=== PATIENT | female | born 1995 | race Caucasian/White ===

== ENCOUNTER 2017-09-02 13:30 | Inpatient (IN) | payer OTHER ==
--- NOTE | 2017-09-02 13:45 | History and Physical Report ---
History of Present Illness Date of examination: 09/02/17 Date of admission: 09/02/17 13:30 Chief complaint: Contractions History of present illness: 21 yo Fe G1 EDD2/06/2018 40 weeks 1day gestation presents in spontaneous labor. Pt initiated early care with [facility]. Her has been uncomplicated. PMH unremarkable. Triple screen Negative. AB positive, Rubella immune, GBS Negative. 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 denies: smoking, alcohol abuse, prescription drug abuse, IV drug use - Obstetrical History Expected Date of Delivery: 09/01/17 Actual Gestation: 40 Week(s) 1 Day(s) : 1 Para: 0 Hx # Term Pregnancies: 0 Number of Pregnancies: 0 Spontaneous Abortions: 0 Induced : 0 Number of Living Children: 0 Medications and Allergies Allergies Allergy/AdvReac Type Severity Reaction Status Date / Time No Known Allergies Allergy Unverified 09/02/17 13:47 Home Medications Medication Instructions Recorded Confirmed Last Taken Type Formula Tablet 09/02/17 Unknown History Review of Systems All systems: negative Gastrointestinal: abdominal pain, no nausea, no vomiting, no diarrhea Genitourinary: pelvic pain, contractions, no leakage of fluid, no genital sores - Physical Exam Breasts: Cardiovascular: Regular rate, Normal S1, Normal S2, No murmurs Lungs: Positive: Clear to auscultation, Normal air movement Abdomen: Positive: normal appearance, soft, normal bowel sounds, other (Gravid) Genitourinary (Female): Positive: normal external genitalia, normal perenium Vulva: both: normal Vagina: Positive: normal moisture Uterus: Positive: enlarged (gravid; S=D) Anus/Rectum: Positive: normal perianal skin Extremities: Positive: normal Deep Tendon Reflex Grade: Normal +2 - Obstetrical FHR: category 1 FHR comments: 140, moderate varibalility Uterine Contraction Monitor Mode: External Cervical Dilatation: 8 (Per admitting RN) Cervical Effacement Percentage: 80 station: 1 Uterine Contraction Frequency (min): 3 Uterine Contraction Duration: 100 Uterine Contraction Pattern: Regular Uterine Tone Measurement Phase: Resting Uterine Contraction Intensity: Moderate Results All other labs normal. Assessment and Plan A: Term gestation; ANGEL 09/01/17, 40w1d Active labor GBS Negative P: Admit to L&D Routine labor orders May have IV/Epidural pain management Expectant management Anticipate
[2017-09-02] MEDS ORDERED: PHENERGAN PR PRN ×2 (13:55→15:59)
[2017-09-02] MEDS ORDERED: XYLOCAINE 2% INFILTRATI ONE (13:55)
[2017-09-02] MEDS ORDERED: MINERAL OIL PO PRN (13:55)
[2017-09-02] MEDS ORDERED: ePHEDrine SULFATE IV PRN (13:55)
[2017-09-02] MEDS ORDERED: BRETHINE IVP PRN (13:55)
[2017-09-02] MEDS ORDERED: SUBLIMAZE IV PRN (13:55)
[2017-09-02] MEDS ORDERED: BRETHINE SUB-Q PRN (13:55)
[2017-09-02] MEDS ORDERED: ZOFRAN IV PRN ×2 (13:55→15:59)
[2017-09-02] MEDS ORDERED: NARCAN 0.4 MG/1 ML IV PRN (13:55)
[2017-09-02] MEDS ORDERED: PITOCin/NS 30 UNIT/500ML 30 UNITS/500 ML BAG IV SCH (14:00)
[2017-09-02] MEDS ORDERED: LACTATED RINGERS 1,000 ML IV SCH (14:00)
[2017-09-02 14:28] LABS: Hematocrit 40.8 % (30.3-42.9); Hemoglobin 13.9 gm/dl (10.1-14.3); Mean Corpuscular HGB Conc 34 % (30-34); Mean Corpuscular Hemoglobin 31 pg (28-32); Mean Corpuscular Volume 90 fl (79-97); Platelet Count 197 K/mm3 (140-440); Red Blood Count 4.55 M/mm3 (3.65-5.03); Red Cell Distribution Width 14.2 % (13.2-15.2)
[2017-09-02] MEDS: PITOCin/NS 20 UNIT/1000ML DRIP 20 UNITS/1,000 ML BAG IV SCH ×2 (15:45→16:49)
--- NOTE | 2017-09-02 15:56 | Procedure Note ---
OB Delivery Note - Delivery Date of Delivery: 09/02/17 (15:40) Surgeon: CLAIRE JOHNSON (ALMA) Estimated blood loss: other (150) - Vaginal Delivery presentation: vertex, compound (right hand) Delivery position: OA Intrapartum events: none Delivery induction: none Delivery augmentation: rupture of membranes Delivery monitor: external FHT, external uterine Route of delivery: Delivery placenta: spontaneous (reyna; velomentous insertion, 3VC) Episiotomy: none Delivery laceration: none Anesthesia: none Delivery comments: unmedicated , RAMIRO/compound presentation (right hand), viable female over intact perineum. less vigorous infant, Cord clamped, cut and infant to pre- warmed RW for assessment by R/NICU for meconium presentation. Spontansous reyna delivery of intact placenta, velamentous cord insertion noted, 3VC. Placenta discarded. FF@U-2, scant rubra lochia, no tears or lacerations. Infant and mother left in stable condition in L&D. - A at 1 minute: 8 at 5 minutes: 8 Infant Gender: Female (3703grams/ 8lbs 3oz)
[2017-09-02] MEDS ORDERED: DULCOLAX PR PRN (15:59)
[2017-09-02] MEDS ORDERED: BENADRYL PO PRN (15:59)
[2017-09-02] MEDS ORDERED: TYLENOL PO PRN (15:59)
[2017-09-02] MEDS ORDERED: TUCKS PAD TP PRN (15:59)
[2017-09-02] MEDS ORDERED: LANSINOH TP PRN (15:59)
[2017-09-02] MEDS ORDERED: PHENERGAN PO PRN (15:59)
[2017-09-02] MEDS ORDERED: NORCO 5/325 PO PRN (15:59)
[2017-09-02] MEDS ORDERED: MILK OF MAGNESIA PO PRN (15:59)
[2017-09-02] MEDS ORDERED: SODIUM CHLORIDE FLUSH SYRINGE 10 ML IV NR (16:00)
[2017-09-02] MEDS: MOTRIN PO SCH ×2 (18:13→23:43)
[2017-09-02] MEDS: COLACE PO SCH (23:42)
[2017-09-03 05:19] LABS: Hematocrit 38.4 % (30.3-42.9); Hemoglobin 13.2 gm/dl (10.1-14.3)
[2017-09-03] MEDS: MOTRIN PO SCH ×3 (06:00→18:13)
[2017-09-03] MEDS ORDERED: M-M-R II VACCINE SUB-Q ONE (06:00)
[2017-09-03] MEDS ORDERED: BOOSTRIX IM ONE (06:00)
--- NOTE | 2017-09-03 10:06 | Progress Note ---
Assessment and Plan A: PP Day #1 Stable P: Follow Routine Orders D/C home today per patient request RTO in 6 Weeks Subjective - Subjective Date of service: 09/03/17 Patient reports: appetite normal, voiding normally, pain well controlled, flatus , ambulating normally : doing well, bottle feeding (and ) Objective - Vital Signs Latest vital signs: Vital Signs Temp Pulse Resp BP BP Pulse Ox 09/03/17 08:33 98.3 F 83 18 101/66 99 09/03/17 00:00 98.0 F 77 18 113/60 09/02/17 20:10 98.2 F 80 18 91/55 09/02/17 17:57 99 F 75 20 104/55 09/02/17 16:58 72 112/59 09/02/17 16:43 73 101/58 09/02/17 16:28 75 103/55 09/02/17 16:13 87 102/56 09/02/17 16:10 62 82 L 09/02/17 16:03 91 09/02/17 15:58 75 104/52 09/02/17 15:55 91 09/02/17 15:14 106 H 0 L 09/02/17 14:44 66 94 09/02/17 14:42 87 95 09/02/17 14:37 64 97 09/02/17 14:33 84 94 09/02/17 14:32 75 96 09/02/17 14:28 75 94 09/02/17 14:27 86 96 09/02/17 14:22 79 98 09/02/17 14:20 81 94 09/02/17 14:17 82 95 09/02/17 14:15 80 112/56 09/02/17 14:11 97.6 F 80 16 112/56 96 Intake and Output 09/02/17 09/03/17 09/03/17 22:59 06:59 14:59 Intake Total 133.333 600 Balance 133.333 600 Intake: IV 133.333 PITOCin/NS 20 UNIT/1000ML 133.333 DRIP 20 units In 1,000 ml @ 125 mls/hr IV DIRECT YOSEF Rx#:[id number] Oral 600 Other: Total, Intake Amount 600 # Voids Void 500 600 Estimated Blood Loss 150 - Exam Breasts: Present: normal Cardiovascular: Present: Regular rate Lungs: Present: Clear to auscultation, Normal air movement Abdomen: Present: normal appearance, soft, normal bowel sounds Uterus: Present: normal, firm, fundal height below umbilicus Extremities: Present: normal
--- NOTE | 2017-09-03 10:07 | Discharge Summary ---
Providers - Providers Date of Admission: 09/02/17 13:30 Date of discharge: 09/03/17 Attending physician: DEBBY SABA MD Primary care physician: DEBBY SABA MD Hospitalization Reason for admission: active labor Delivery: Episiotomy: none Laceration: none Other procedures: none complications: none Discharge diagnosis: IUP at term delivered [place] baby: female Condition at discharge: Good Disposition: DC-01 TO HOME OR SELFCARE Plan - Provider Discharge Summary Activity: routine, no sex for 6 weeks, no heavy lifting 4 weeks, no strenuous exercise Diet: routine Instructions: routine Additional instructions: [] Smoking cessation referral if applicable(refer to patient education folder for contact #) [] Refer to [facility] Book[facility] Call your doctor immediately for: * Fever > 100.5 * Heavy vaginal bleeding ( >1 pad per hour) * Severe persistent headache * Shortness of breath * Reddened, hot, painful area to leg or breast * Drainage or odor from incision. * Keep incision clean and dry at all times and follow doctor's instructions regarding bathing/showering - Follow up plan Follow up: DEBBY SABA MD [Primary Care Provider] - 6 Weeks
[2017-09-03] MEDS ORDERED: Fluarix Quad 2017-2018(36 MOS+ IM ONE (12:00)
[2017-09-03] MEDS: COLACE PO SCH ×3 (15:57→21:38)
[2017-09-04] MEDS: MOTRIN PO SCH (06:32)
[2017-09-04 10:09] VITALS: BP 114/71
[2017-09-04] MEDS: COLACE PO SCH (10:39)
== END 2017-09-04 14:10 | disposition home or self-care (01) | DRG 775 ==
LOC: LD 13:30 → OB 17:21
PROVIDERS: ADMIT Obstetrics & Gynecology; ATTEND Obstetrics & Gynecology
PROC: 10E0XZZ Delivery of Products of Conception, External Approach (ICD-10-PCS; 2017-09-02)
PROC: 3E0234Z Introduction of Serum, Toxoid and Vaccine into Muscle, Percutaneous Approach (ICD-10-PCS; principal; 2017-09-03)
DX: O77.0 Labor and delivery complicated by meconium in amniotic fluid (principal); O32.6XX0 Maternal care for compound presentation, not applicable or unspecified; Z37.0 Single live birth; Z23 Encounter for immunization; Z3A.40 40 weeks gestation of pregnancy
CPT/HCPCS: 36415; 85014; 85018; 85027; 86592; 86850; 86900; 86901; 90471; 90715; 99211; G0463; J2590

== ENCOUNTER 2021-03-01 11:33 | Inpatient (IN) | payer MEDICAID ==
[2021-03-01] MEDS ORDERED: fentaNYL 100 MCG/2 ML INJ IV PRN (13:39)
[2021-03-01] MEDS ORDERED: miSOPROStol 200 MCG TAB PR PRN (13:39)
[2021-03-01] MEDS ORDERED: MINERAL OIL 30 ML ORAL LIQD PO PRN (13:39)
[2021-03-01] MEDS ORDERED: ACETAMINOPHEN 325 MG TAB PO PRN (13:39)
[2021-03-01] MEDS ORDERED: LOPERAMIDE 2 MG CAP PO PRN (13:39)
[2021-03-01] MEDS ORDERED: TERBUTALINE 1 MG/1 ML INJ SUB-Q PRN (13:39)
[2021-03-01] MEDS ORDERED: ePHEDrine SULFATE 50 MG/1 ML INJ IV PRN (13:39)
[2021-03-01] MEDS ORDERED: OXYTOCIN 10 UNIT/1 ML INJ IM PRN (13:39)
[2021-03-01] MEDS ORDERED: METHYLERGONOVINE MALEATE 0.2 MG/ML VIAL IM PRN (13:39)
[2021-03-01] MEDS ORDERED: BUTORPHANOL 2 MG/1 ML INJ IV PRN ×2 (13:39)
[2021-03-01] MEDS ORDERED: CARBOPROST TROMETHAMINE 250 MCG/1 ML INJ IM PRN (13:39)
[2021-03-01] MEDS ORDERED: LACTATED RINGERS 1,000 ML IV SCH (13:45)
[2021-03-01] MEDS ORDERED: OXYTOCIN DRIP 30 UNITS/500 ML BAG IV SCH ×2 (14:00)
[2021-03-01] MEDS ORDERED: LIDOCAINE (2%) 20 MG/1 ML VIAL 20 ML MDV INFILTRATI ONE (14:00)
--- NOTE | 2021-03-01 14:01 | History and Physical Report ---
History of Present Illness Date of examination: 03/01/21 Date of admission: 03/01/21 Chief complaint: c/o uc times several hours History of present illness: 25 y/o female presents to [facility] @ 39.1 wks with c/o uc times several hours. Pt denies LOF or VB and admits to active FM. She [facility] [place] @ 13 3/7 wks. Pt had an uncomplicated course and her GBS is neg. Unremarkable med/surgical/social/family hx. Pt was found to be in labor and was admitted to L&D for delivery. Past History Past Medical History: no pertinent history Past Surgical History: no surgical history Family/Genetic History: none Social history: no significant social history, , full code - Obstetrical History Expected Date of Delivery: 03/05/21 Actual Gestation: 39 Week(s) 3 Day(s) : 2 Para: 1 Hx # Term Pregnancies: 1 Number of Pregnancies: 0 Number of Living Children: 1 Medications and Allergies Allergies Allergy/AdvReac Type Severity Reaction Status Date / Time No Known Allergies Allergy Verified 03/01/21 12:46 Home Medications Medication Instructions Recorded Confirmed Last Taken Type Formula Tablet 1 tab PO DAILY 09/02/17 1 Day Ago History ~02/28/21 Active Meds: Active Medications Acetaminophen (Acetaminophen 325 Mg Tab) 650 mg PO Q4H PRN PRN Reason: Pain, Mild (1-3) Butorphanol Tartrate (Butorphanol 2 Mg/1 Ml Inj) 1 mg IV Q2H PRN PRN Reason: Pain, Moderate(4-6) LABOR PAIN Butorphanol Tartrate (Butorphanol 2 Mg/1 Ml Inj) 2 mg IV Q2H PRN PRN Reason: Pain , Severe (7-10) Carboprost Tromethamine (Carboprost Tromethamine 250 Mcg/1 Ml Inj) 250 mcg IM ONCE PRN PRN Reason: Uterine Bleeding Ephedrine Sulfate (Ephedrine Sulfate 50 Mg/1 Ml Inj) 10 mg IV Q2M PRN PRN Reason: Hypotension Fentanyl (Fentanyl 100 Mcg/2 Ml Inj) 100 mcg IV Q2H PRN PRN Reason: Pain,Severe (7-10) LABOR PAIN Oxytocin/Sodium Chloride (Pitocin/Ns 30 Unit/500ml) 30 units in 500 mls @ 2 mls/hr IV TITR YOSEF; Protocol Lactated Ringer's (Lactated Ringers) 1,000 mls @ 125 mls/hr IV DIRECT YOSEF Oxytocin/Sodium Chloride (Pitocin/Ns 30 Unit/500ml) 30 units in 500 mls @ 40 mls/hr IV TITR YOSEF; Protocol Lidocaine (Lidocaine (2%) 20 Mg/1 Ml Vial 20 Ml Mdv) 20 ml INFILTRATI ONCE ONE Stop: 03/01/21 13:40 Loperamide HCl (Loperamide 2 Mg Cap) 2 mg PO ONCE PRN PRN Reason: give with Hemabate Methylergonovine Maleate (Methylergonovine Maleate 0.2 Mg/Ml Vial) 0.2 mg IM ONCE PRN PRN Reason: Uterine Bleeding Mineral Oil (Mineral Oil 30 Ml Oral Liqd) 30 ml PO QHS PRN PRN Reason: Constipation Misoprostol (Misoprostol 200 Mcg Tab) 800 mcg MN ONCE PRN PRN Reason: Uterine Bleeding Oxytocin (Oxytocin 10 Unit/1 Ml Inj) 10 unit IM ONCE PRN PRN Reason: Uterine Bleeding Terbutaline Sulfate (Terbutaline 1 Mg/1 Ml Inj) 0.25 mg SUB-Q ONCE PRN PRN Reason: Hyperstimulation/Hypertonicity Review of Systems All systems: negative Eyes: deferred Ears, nose, mouth and throat: deferred Breasts: normal Genitourinary: normal appearance Rectal Exam: deferred - Vital Signs Vital signs: Vital Signs Temp Pulse Resp BP Pulse Ox 98.8 F 67 14 120/66 100 03/01/21 12:47 03/01/21 12:47 03/01/21 12:47 03/01/21 12:47 03/01/21 12:47 Temp Pulse Resp BP Pulse Ox 98.8 F 81 14 103/55 97 03/01/21 12:47 03/01/21 13:49 03/01/21 12:47 03/01/21 13:26 03/01/21 13:49 - Physical Exam Breasts: Positive: normal Abdomen: Positive: normal appearance, soft, normal bowel sounds Genitourinary (Female): Positive: normal external genitalia, normal perenium Vulva: both: normal Vagina: Positive: normal moisture Uterus: Positive: enlarged, normal contour, other (gravid) Adnexa: both: normal Anus/Rectum: Positive: normal perianal skin Extremities: Positive: normal - Obstetrical FHR: auscultation normal, category 1 Uterine Contraction Monitor Mode: External Cervical Dilatation: 5 Cervical Effacement Percentage: 80 station: -1 Uterine Contraction Pattern: Irregular Uterine Tone Measurement Phase: Resting Uterine Contraction Intensity: Mild Results All other labs normal. Assessment and Plan A: IUP@39.1 wks GBS neg p: Admit to L&D Continuous monitoring Pain med/Epidural prn Pitocin Augmentation Anticipate - Patient Problems (1) Supervision of normal IUP (intrauterine ) in multigravida Current Visit: Yes Status: Acute
[2021-03-01 14:10] LABS: Hematocrit 41.4 % (30.3-42.9); Hemoglobin 14.3 gm/dl (10.1-14.3); Mean Corpuscular HGB Conc 35 % (30-34); Mean Corpuscular Volume 93 fl (79-97); Platelet Count 176 K/mm3 (140-440); Red Blood Count 4.46 M/mm3 (3.65-5.03); Red Cell Distribution Width 13.3 % (13.2-15.2)
[2021-03-01] MEDS ORDERED: LANOLIN/ZINC/DIMETHICONE (LANSINOH) 7 GM TP PRN (19:55)
[2021-03-01] MEDS ORDERED: ONDANSETRON 4 MG/2 ML INJ IV PRN (19:55)
[2021-03-01] MEDS ORDERED: WITCH HAZEL/ GLYCERIN PAD TP PRN (19:55)
[2021-03-01] MEDS ORDERED: PROMETHAZINE 25 MG RECT SUPP PR PRN (19:55)
[2021-03-01] MEDS ORDERED: oxyCODONE /ACETAMINOPHEN 5-325MG TAB PO PRN (19:55)
[2021-03-01] MEDS ORDERED: diphenhydrAMINE 25 MG CAP PO PRN (19:55)
[2021-03-01] MEDS ORDERED: MAGNESIUM HYDROXIDE (MOM) ORAL LIQD UDC PO PRN (19:55)
[2021-03-01] MEDS ORDERED: PROMETHAZINE 25 MG TAB PO PRN (19:55)
--- NOTE | 2021-03-01 20:02 | Procedure Note ---
OB Delivery Note - Delivery Date of Delivery: 03/01/21 Surgeon: LEON RODRIGUEZ Estimated blood loss: other (250cc) - Vaginal Delivery presentation: vertex, compound Delivery position: OA Intrapartum events: none Delivery induction: none Delivery augmentation: rupture of membranes, pitocin Delivery monitor: external FHT, external uterine Route of delivery: Delivery placenta: spontaneous Delivery cord: 3 umbilical vessels Episiotomy: none Delivery laceration: none Anesthesia: intravenous Delivery comments: of a live viable female infant in OA position via compound presentation. Spontaneous delivery of head along with right arm then shoulders. Immediately after delivery was placed on mom's chest for skin to skin bonding. Delayed cord clamping while NICU nurse dried and stimulated baby. Cord was clamped x2 and FOB was guided in cutting the cord. was taken to warmer for an initial asses by NICU nurse 8/9. Spontaneous delivery of an intact placenta with 3cv. FF@U2 with fundal massage and IV Pitocin. An exploration of tears revealed none. FW 4095Gms. QBL 166 per nurse. Mom and baby was left in stable condition with nurse. - Infant A at 1 minute: 8 at 5 minutes: 9 Infant Gender: Female (FW 4095Gms)
[2021-03-01] MEDS: IBUPROFEN 600 MG TAB PO SCH (21:22)
[2021-03-01] MEDS ORDERED: TETANUS,DIPH,PERTUSS(ACELL) VACCINE 0.5 ML SYRINGE IM ONE (23:26)
[2021-03-02] MEDS: IBUPROFEN 600 MG TAB PO SCH ×3 (05:33→18:26)
[2021-03-02] MEDS ORDERED: TETANUS,DIPH,PERTUSS(ACELL) VACCINE 0.5 ML SYRINGE IM ONE (06:00)
[2021-03-02 07:40] LABS: Hematocrit 37.1 % (30.3-42.9); Hemoglobin 12.9 gm/dl (10.1-14.3)
[2021-03-02] MEDS ORDERED: PRENATAL FORMULA PO SCH (10:00)
--- NOTE | 2021-03-02 11:18 | Progress Note ---
Assessment and Plan A: day 1 S/P . P: Continue routine care. Anticipate discharge home tomorrow morning if patient continues to do well. Subjective - Subjective Date of service: 03/02/21 Principal diagnosis: day 1 S/P Patient reports: appetite normal, voiding normally, pain well controlled, flatus, ambulating normally, no dizzy ambulation, no nauseated : doing well Objective - Vital Signs Latest vital signs: Vital Signs Temp Pulse Resp BP BP Pulse Ox Pulse Ox 03/02/21 08:40 99 03/02/21 08:20 97.9 F 64 20 94/44 03/02/21 05:30 98.4 F 63 18 101/61 98 03/01/21 23:30 98.5 F 84 18 110/63 98 03/01/21 22:25 99 03/01/21 21:34 65 92/51 03/01/21 21:23 63 95/51 03/01/21 21:19 75 89/53 03/01/21 21:05 70 88/51 03/01/21 20:49 69 96/54 03/01/21 20:38 69 100 03/01/21 20:34 67 97/51 03/01/21 20:33 78 99 03/01/21 20:28 74 99 03/01/21 20:23 82 98 03/01/21 20:19 78 98/56 03/01/21 20:18 81 98 03/01/21 20:13 78 99 03/01/21 20:08 85 98 03/01/21 20:04 81 94/50 03/01/21 20:03 74 96 03/01/21 20:02 84 94 03/01/21 19:58 77 98 03/01/21 19:53 89 97 03/01/21 19:52 85 123/71 99 03/01/21 19:49 98.1 F 86 18 98 03/01/21 19:48 90 98 03/01/21 19:43 74 99 03/01/21 19:41 80 101/50 03/01/21 19:38 81 99 03/01/21 19:33 65 99 03/01/21 19:29 88 94 03/01/21 19:28 92 H 97 03/01/21 19:23 88 100 03/01/21 19:21 88 91 08/12/21 19:18 73 100 03/01/21 19:13 76 100 03/01/21 19:12 75 107/52 03/01/21 19:08 82 96 03/01/21 19:03 95 H 99 03/01/21 18:58 86 97 03/01/21 18:53 77 98 03/01/21 18:48 77 97 03/01/21 18:43 85 130/46 98 03/01/21 18:38 92 H 98 03/01/21 18:33 90 97 03/01/21 18:28 86 97 03/01/21 18:23 78 83 L 03/01/21 18:18 82 99 03/01/21 18:13 73 100 03/01/21 18:12 90 123/59 03/01/21 18:08 78 100 03/01/21 18:03 77 99 03/01/21 17:58 98 H 100 03/01/21 17:53 80 99 03/01/21 17:48 96 H 100 03/01/21 17:43 69 99 03/01/21 17:41 81 98/54 03/01/21 17:38 71 99 03/01/21 17:33 89 99 03/01/21 17:28 77 99 03/01/21 17:23 85 99 03/01/21 17:12 80 106/57 03/01/21 16:41 80 98/55 03/01/21 16:11 87 105/58 03/01/21 15:42 85 104/55 03/01/21 14:45 68 112/67 03/01/21 14:29 90 100 03/01/21 14:27 86 111/65 03/01/21 14:24 88 99 03/01/21 14:19 94 H 98 03/01/21 14:14 79 98 03/01/21 14:09 74 98 03/01/21 14:04 91 H 99 03/01/21 13:59 80 97 03/01/21 13:56 78 104/59 03/01/21 13:54 82 98 03/01/21 13:49 81 97 03/01/21 13:44 88 98 03/01/21 13:39 92 H 98 03/01/21 13:34 80 98 03/01/21 13:29 85 98 03/01/21 13:26 87 103/55 03/01/21 13:24 91 H 98 03/01/21 13:19 89 98 03/01/21 12:47 98.8 F 67 14 120/66 99 100 Intake and Output 03/01/21 03/02/21 03/02/21 23:59 07:59 15:59 Intake Total 7.400 480 120 Output Total 300 1400 800 Balance -292.600 -920 -680 Intake: IV 7.400 PITOCin/NS 30 UNIT/500ML 7.400 30 units In 500 ml @ 2 mls/hr IV TITR YOSEF Rx#: [id number] Oral 120 Intake, Free Water 480 Output: Urine 300 1400 800 Void 300 1400 800 Other: Total, Intake Amount 120 Total, Output Amount 300 900 800 # Voids Void 2 Estimated Blood Loss 166 - Exam Cardiovascular: Present: Regular rate Lungs: Present: Clear to auscultation Abdomen: Present: normal appearance, soft, normal bowel sounds. Absent: distention, tenderness, guarding, rigidity Uterus: Present: normal, firm, fundal height below umbilicus. Absent: bogginess, tenderness Extremities: Present: normal. Absent: tenderness, edema - Labs Labs: Abnormal lab results 03/01/21 Range/Units 13:09 MCHC 35 H (30-34) %
[2021-03-02] MEDS: PRENATAL VIT27-FE FUMARATE-FOLIC ACID VIT TAB PO SCH (12:30)
[2021-03-03] MEDS: IBUPROFEN 600 MG TAB PO SCH ×3 (00:12→10:52)
--- NOTE | 2021-03-03 06:51 | Progress Note ---
Assessment and Plan A: day 2 S/P . P: Discharge patient home today. Discussed with patient discharge instructions and warning signs. Advised patient to continue taking her vitamins at home. Advised patient to avoid intercourse, lifting, and housework. Advised patient to follow up at [facility] in 6 weeks. Patient voiced understanding of all instructions. Subjective - Subjective Date of service: 03/03/21 Principal diagnosis: day 2 S/P Patient reports: appetite normal, voiding normally, pain well controlled, flatus, ambulating normally, no dizzy ambulation, no nauseated : doing well Objective - Vital Signs Latest vital signs: Vital Signs Temp Pulse Resp BP BP Pulse Ox Pulse Ox 03/03/21 00:45 98.1 F 72 20 94/51 99 03/02/21 19:45 99 03/02/21 15:45 97.8 F 60 20 101/50 03/02/21 12:00 98.8 F 77 20 98/57 03/02/21 08:40 99 03/02/21 08:20 97.9 F 64 20 94/44 Intake and Output 03/02/21 03/02/21 03/03/21 15:59 23:59 07:59 Intake Total 600 360 720 Output Total 800 Balance -200 360 720 Intake: Oral 600 360 240 Intake, Free Water 480 Output: Urine 800 Void 800 Other: Total, Intake Amount 240 360 240 Total, Output Amount 800 # Voids Void 1 1 1 - Exam Cardiovascular: Present: Regular rate Lungs: Present: Clear to auscultation Abdomen: Present: normal appearance, soft, normal bowel sounds. Absent: distention, tenderness, guarding, rigidity Uterus: Present: normal, firm, fundal height below umbilicus. Absent: bogginess, tenderness Extremities: Present: normal. Absent: tenderness, edema
--- NOTE | 2021-03-03 06:56 | Discharge Summary ---
Providers - Providers Date of Admission: 03/01/21 11:34 Date of discharge: 03/03/21 Attending physician: KEA ARMENTA MD Primary care physician: KAE ARMENTA MD Hospitalization Reason for admission: active labor Delivery: Episiotomy: none Laceration: none Other procedures: none complications: none Discharge diagnosis: IUP at term delivered baby: female Pertinent studies: Labs Hospital course: Stable hospital course. Condition at discharge: Good Disposition: 01 HOME / SELF CARE / HOMELESS - Discharge Diagnoses (1) Term delivered Status: Acute Plan - Provider Discharge Summary Activity: routine, no sex for 6 weeks, no heavy lifting 4 weeks, no strenuous exercise Diet: routine Instructions: routine Additional instructions: Continue taking your vitamins at home. Follow up at [facility] in 6 weeks for visit. Call your doctor immediately for: * Fever > 100.5 * Heavy vaginal bleeding ( >1 pad per hour) * Severe persistent headache * Shortness of breath * Reddened, hot, painful area to leg or breast - Follow up plan Follow up: KRYSTAL FUNEZ CNM [Advanced Practice Nurse] - 6 Weeks
[2021-03-03] MEDS: PRENATAL VIT27-FE FUMARATE-FOLIC ACID VIT TAB PO SCH (10:53)
[2021-03-03 16:08] VITALS: BP 112/63
== END 2021-03-03 16:10 | disposition home or self-care (01) | DRG 807 ==
LOC: TRG 11:33 → APU 11:33 → TRG 13:39 → LD 15:16 → OB 22:11
PROVIDERS: ADMIT Obstetrics & Gynecology; ATTEND Obstetrics & Gynecology
PROC: 10E0XZZ Delivery of Products of Conception, External Approach (ICD-10-PCS; principal; 2021-03-01)
PROC: 3E0234Z Introduction of Serum, Toxoid and Vaccine into Muscle, Percutaneous Approach (ICD-10-PCS; 2021-03-02)
DX: O80 Encounter for full-term uncomplicated delivery (principal); Z37.0 Single live birth; Z3A.39 39 weeks gestation of pregnancy; Z20.822 Contact with and (suspected) exposure to COVID-19; Z23 Encounter for immunization
CPT/HCPCS: 36415; 85014; 85018; 85027; 86850; 86900; 86901; 90471; 90715; G0378; J0595; J2590; J7120; U0003